=== PATIENT | female | born 1975 | race American Indian/Alaskan Native ===

== ENCOUNTER 2017-07-05 06:45 | Inpatient (IN) | payer MEDICAID, OTHER ==
[2017-07-05] MEDS ORDERED: ASPIRIN PO ONE (06:54)
[2017-07-05 07:19] LABS: Basophils % (Auto) 0.6 % (0.0-1.8); Eosinophils # (Auto) 0.1 K/mm3 (0.0-0.4); Eosinophils % (Auto) 1.5 % (0.0-4.3); Hematocrit 38.8 % (30.3-42.9); Hemoglobin 12.9 gm/dl (10.1-14.3); Lymphocytes # (Auto) 2.1 K/mm3 (1.2-5.4); Lymphocytes % (Auto) 28.1 % (13.4-35.0); Mean Corpuscular HGB Conc 33 % (30-34); Mean Corpuscular Hemoglobin 30 pg (28-32); Mean Corpuscular Volume 91 fl (79-97); Monocytes # (Auto) 0.5 K/mm3 (0.0-0.8); Monocytes % (Auto) 6.5 % (0.0-7.3); Platelet Count 256 K/mm3 (140-440); Red Blood Count 4.28 M/mm3 (3.65-5.03)
[2017-07-05 07:35] LABS: BUN/Creatinine Ratio 20; Blood Urea Nitrogen 14 mg/dL (7-17); Calcium 9.5 mg/dL (8.4-10.2); Hemolysis Index 22
--- NOTE | 2017-07-05 07:54 | Emergency Department Report ---
ED General Adult HPI - General Chief complaint: Chest Pain Stated complaint: CHEST PAIN Time Seen by Provider: 07/05/17 07:27 Source: patient Mode of arrival: Ambulatory Limitations: No Limitations - History of Present Illness Initial comments: Palpitations and right sided neck pain with intermittent atypical chest pain was here 2 months ago she had a CT angiogram of the neck there was nothing acute at that time she was felt to have atypical chest pain. She was up history of anxiety she also is a smoker here for evaluation of palpitations, pt feels like she may black out , no fever, intermittent cp w/ palpitaiotns -: Gradual, days(s) Consistency: intermittent Associated Symptoms: chest pain. denies: diaphoresis, fever/chills, headaches, loss of appetite, malaise, nausea/vomiting, rash, seizure - Related Data Previous Rx's Medication Instructions Recorded Last Taken Type ALBUTEROL Inhaler [ProAir HFA 2 puff IH QID PRN #1 inhalation 01/12/15 09/28/15 Rx Inhaler] Atenolol/Chlorthalidone [Tenoretic 1 tab PO QDAY #30 tablet 09/30/15 Unknown Rx 50-25] Allergies Allergy/AdvReac Type Severity Reaction Status Date / Time No Known Allergies Allergy Verified 03/25/15 17:11 ED Review of Systems ROS: Stated complaint: CHEST PAIN Other details as noted in HPI Comment: All other systems reviewed and negative Constitutional: denies: diaphoresis, fever, malaise ENT: denies: dental pain, hearing loss, epistaxis Respiratory: denies: orthopnea, shortness of breath, SOB with exertion, SOB at rest, stridor Cardiovascular: chest pain, palpitations. denies: edema, syncope Gastrointestinal: denies: abdominal pain, nausea, vomiting, diarrhea, constipation, hematemesis, melena, hematochezia Neurological: denies: headache, numbness, paresthesias, confusion, abnormal gait , vertigo (does drink occasionally also with glasses caffeine felt like she is blackout with palpitations.) Other: Also worried about some right-sided neck pain with possible mass ED Past Medical Hx - Past Medical History Previous Medical History?: Yes Hx Hypertension: Yes ("borderline") Hx Psychiatric Treatment: Yes (depression and anxiety) Hx Asthma: Yes Additional medical history: high cholesterol. ANXIETY/ DEPRESSION - Surgical History Past Surgical History?: No - Social History Smoking Status: Never Smoker Substance Use Type: None - Medications Home Medications: Home Medications Medication Instructions Recorded Confirmed Last Taken Type ALBUTEROL Inhaler [ProAir HFA 2 puff IH QID PRN #1 inhalation 01/12/15 09/30/15 09/28/15 Rx Inhaler] Atenolol/Chlorthalidone [Tenoretic 1 tab PO QDAY #30 tablet 09/30/15 Unknown Rx 50-25] ED Physical Exam - General Limitations: No Limitations General appearance: alert - Head Head exam: Present: atraumatic, normocephalic - Eye Eye exam: Present: PERRL, EOMI - ENT ENT exam: Present: normal exam, normal orophraynx - Neck Neck exam: Present: normal inspection. Absent: tenderness, meningismus - Respiratory Respiratory exam: Present: normal lung sounds bilaterally. Absent: respiratory distress, wheezes, rales, rhonchi, stridor, accessory muscle use, prolonged expiratory - Cardiovascular Cardiovascular Exam: Present: regular rate, normal rhythm, irregular rhythm, normal heart sounds, other (PVCs) - GI/Abdominal GI/Abdominal exam: Present: soft. Absent: tenderness, guarding, rebound, mass, pulsatile mass - Extremities Exam Extremities exam: Present: normal inspection, normal capillary refill. Absent: tenderness, pedal edema, joint swelling, calf tenderness - Back Exam Back exam: Present: normal inspection. Absent: tenderness, CVA tenderness (R), CVA tenderness (L), muscle spasm, paraspinal tenderness, vertebral tenderness - Neurological Exam Neurological exam: Present: alert, oriented X3, CN II-XII intact. Absent: motor sensory deficit - Psychiatric Psychiatric exam: Present: normal affect, anxious - Skin Skin exam: Present: warm. Absent: cyanosis, diaphoretic, erythema, urticaria, vesicles, petechiae ED Course Vital Signs 07/05/17 06:51 Temperature 98.2 F ED Medical Decision Making - Lab Data Result diagrams: 07/05/17 07:02 07/05/17 07:02 - EKG Data -: EKG Interpreted by Me EKG shows normal: sinus rhythm - EKG Data Interpretation: other (no acute ischemic change frequent PVCs) - Radiology Data Radiology results: report reviewed - Medical Decision Making Consult was made to cardiology as well as hospitalist service for further evaluation patient does seem to have frequent PVCs never has had this checked out she is having palpitations with possible near syncope Dr. Hahn will evaluate patient for possible admission consult was made to in [facility] cardiology . Heart Critical care attestation.: If time is entered above; I have spent that time in minutes in the direct care of this critically ill patient, excluding procedure time. ED Disposition Clinical Impression: Palpitations, Near syncope, PVCs (premature ventricular contractions) Disposition: 09 OP ADMIT IP TO THIS HOSP Is pt being admited?: Yes Condition: Stable Referrals: PRIMARY CARE, [Primary Care Provider] - 3-5 Days Time of Disposition: 12:55
--- NOTE | 2017-07-05 10:12 | Cat Scan Report ---
FINAL REPORT EXAM: CT NECK W CON HISTORY: mass TECHNIQUE: CT of the neck performed. IV contrast administered. Axial images and coronal and sagittal reformatted images were obtained. A marker was placed on the right side of the neck. PRIORS: None. FINDINGS: There is no abnormal lymphadenopathy. No focal neck mass identified. No abnormal fluid collection or inflammatory process seen in the neck. Salivary glands are symmetric and unremarkable. Thyroid gland is unremarkable. Airway is patent. Parapharyngeal tissue planes are maintained. Visualized sinuses are clear. The marker placed on the neck is superficial to the right sternocleidomastoid muscle. No mass is seen in this area. IMPRESSION: There is no abnormal mass or fluid collections seen. The area of clinical concern which is delineated with a skin marker, probably corresponds to the right sternocleidomastoid muscle which has a normal size and appearance.
[2017-07-05] MEDS ORDERED: K-DUR PO ONE ×2 (10:57→22:00)
[2017-07-05] MEDS ORDERED: BABY ASPIRIN PO STA (12:42)
[2017-07-05] MEDS ORDERED: MORPHINE IV PRN (12:42)
[2017-07-05] MEDS ORDERED: TYLENOL PO PRN (12:42)
[2017-07-05] MEDS ORDERED: SODIUM CHLORIDE FLUSH SYRINGE 10 ML IV PRN ×2 (12:42)
[2017-07-05] MEDS ORDERED: ZOFRAN IV PRN (12:42)
[2017-07-05] MEDS ORDERED: NITROSTAT SL PRN (12:42)
--- NOTE | 2017-07-05 12:45 | History and Physical Report ---
History of Present Illness Chief complaint: My heart is beating fast History of present illness: 42 YO Female with Obesity, HTN, HLD, Depression, Anxiety, GERD, Nicotine Dependence, Asthma presents to ED for evaluation. Pt states that she has experienced chest palpitations and pain in her chest for the past week with worsening symptoms over the past 1 day. Pt states that her chest pain is 4/10, intermittent, midsternal, dull, radiates to her right neck/and right anterior chest, no worsened with exertion, or relieved with rest. Pt denies fever, chills , shortness of breath, hemoptysis, unintentional weight loss, unilateral leg swelling, calf pain, individual/family history of DVT/PE, prolonged travel/ immobility, skin rash, or trauma. Pt seen and evaluated in ED and found to have PVC's, as well as symptoms consistent with ACS as well as Diastolic CHF. Cardiology consulted in ED. Pt admitted to telemetry. Past History Past Medical History: GERD, hypertension, hyperlipidemia Past Surgical History: No surgical history, Other (reviewed) Social history: , smoking. denies: alcohol abuse, prescription drug abuse Family history: hypertension Medications and Allergies Allergies Allergy/AdvReac Type Severity Reaction Status Date / Time No Known Allergies Allergy Verified 03/25/15 17:11 Home Medications Medication Instructions Recorded Confirmed Last Taken Type ALBUTEROL Inhaler [ProAir HFA 2 puff IH QID PRN #1 inhalation 01/12/15 07/05/17 09/28/15 Rx Inhaler] Atenolol/Chlorthalidone [Tenoretic 1 tab PO QDAY #30 tablet 09/30/15 07/05/17 Unknown Rx 50-25] Ergocalciferol [Vitamin D2] 1 cap PO QWEEK 07/05/17 07/05/17 Unknown History Fluticasone (Nf) [Flovent Hfa(Nf)] 2 puff IH BID 07/05/17 07/05/17 Unknown History Omeprazole 40 mg PO DAILY 07/05/17 07/05/17 Unknown History Review of Systems Constitutional: no weight loss, no weight gain, no fever, no chills Ears, nose, mouth and throat: no ear pain, no ear discharge, no tinnitis, no decreased hearing, no nose pain Cardiovascular: chest pain, palpitations, no orthopnea, no edema, no syncope, no lightheadedness, no shortness of breath, no dyspnea on exertion Respiratory: no cough, no cough with sputum, no excessive sputum, no hemoptysis , no shortness of breath Gastrointestinal: no nausea, no vomiting, no diarrhea, no constipation, no change in bowel habits Genitourinary Female: no pelvic pain, no flank pain, no menorrhagia, no dysuria , no urinary frequency, no urgency Rectal: no pain, no incontinence, no bleeding Musculoskeletal: no neck stiffness, no neck pain, no shooting arm pain, no arm numbness/tingling, no low back pain, no shooting leg pain Integumentary: no rash, no pruritis, no redness, no sores, no wounds, no jaundice Neurological: no transient paralysis, no paralysis, no weakness, no parathesias , no numbness, no tingling, no seizures Psychiatric: no anxiety, no memory loss, no change in sleep habits, no sleep disturbances, no insomnia, no hypersomnia Endocrine: no cold intolerance, no heat intolerance, no polyphagia, no excessive thirst, no polydipsia, no polyuria, no nocturia Hematologic/Lymphatic: no easy bruising, no easy bleeding Allergic/Immunologic: no urticaria, no allergic rhinitis, no wheezing Exam - Constitutional Vitals: Temp Pulse Resp BP Pulse Ox 98.2 F 07/05/17 06:51 General appearance: Present: mild distress, obese - EENT Eyes: Present: PERRL ENT: hearing intact, clear oral mucosa - Neck Neck: Present: supple, normal ROM - Respiratory Respiratory effort: normal Respiratory: bilateral: CTA - Cardiovascular Heart Sounds: Present: S1 & S2. Absent: rub, click - Extremities Extremities: pulses symmetrical, No edema Peripheral Pulses: within normal limits - Abdominal General gastrointestinal: Present: soft, non-tender, non-distended, normal bowel sounds Female genitourinary: Present: normal - Integumentary Integumentary: Present: clear, warm, dry - Musculoskeletal Musculoskeletal: gait normal, strength equal bilaterally - Psychiatric Psychiatric: appropriate mood/affect, intact judgment & insight - Neurologic Neurologic: CNII-XII intact, moves all extremities Results - Labs CBC & Chem 7: 07/05/17 07:02 07/05/17 07:02 Labs: Abnormal lab results 07/05/17 Range/Units 07:02 Sodium 136 L (137-145) mmol/L Potassium 3.2 L (3.6-5.0) mmol/L Chloride 94.6 L (98-107) mmol/L Glucose 110 H (65-100) mg/dL Assessment and Plan - Patient Problems (1) ACS (acute coronary syndrome) Current Visit: Yes Status: Acute Plan to address problem: Cardiology consulted in ED, Serial cardiac enzymes, D dimer, EKG, Echo, Stress test, supplemental oxygen, morphine, nitro tabs, aspirin, (2) PVCs (premature ventricular contractions) Current Visit: Yes Status: Acute Plan to address problem: CArdiology consulted, bmp, telemetry, (3) Diastolic CHF Current Visit: Yes Status: Suspected Qualifiers: Heart failure chronicity: acute Qualified Code(s): I50.31 - Acute diastolic (congestive) heart failure Plan to address problem: Strict I/O, Afterload reduction, Echo, cardiology consulted, monitor uop q shift , serial cardiac enzymes, bnp, d dimer, daily weight, (4) GERD (gastroesophageal reflux disease) Current Visit: Yes Status: Acute Qualifiers: Esophagitis presence: without esophagitis Qualified Code(s): K21.9 - Gastro -esophageal reflux disease without esophagitis Plan to address problem: PPI therapy, supportive care. (5) DVT prophylaxis Current Visit: No Status: Acute Plan to address problem: scd to ble while in bed
[2017-07-05 13:24] LABS: Chol/HDL Ratio 4.59 %
--- NOTE | 2017-07-05 15:15 | Consultation ---
History of Present Illness Consult date: 07/05/17 Requesting physician: RENATO CORBIN Consult reason: other (PVCs) History of present illness: The patient is a 42YO female with a past medical history significant for HTN, HLP, asthma, GERD, anxiety and panic attacks, tobacco use. She is previously unknown to our practice. She presented with c/o palpitations, chest pain and intermittent dizziness for the past 1 week. She was noted to have frequent PVCs in ED and thus cardiology has been consulted. Pt describes her chest pain as an intermittent, nonexertional, midsternal dull pain which sometimes radiates into her right neck and right breast. There are no clear aggravating or alleviating factors. Also, pt reports that when she goes from a sitting to standing position , she feels dizzy. She denies any SOB, n/v, diaphoresis or syncope. She denies any prior cardiac issues or cardiac evaluation. Pt taking atenolol at home for HTN. Past History Past Medical History: hypertension, hyperlipidemia, other (asthma, obesity) Social history: smoking, alcohol abuse (2-3 days per week, drinks 2-3 glasses of wine per sitting). denies: prescription drug abuse Medications and Allergies Allergies Allergy/AdvReac Type Severity Reaction Status Date / Time No Known Allergies Allergy Verified 03/25/15 17:11 Home Medications Medication Instructions Recorded Confirmed Last Taken Type ALBUTEROL Inhaler [ProAir HFA 2 puff IH QID PRN #1 inhalation 01/12/15 07/05/17 09/28/15 Rx Inhaler] Atenolol/Chlorthalidone [Tenoretic 1 tab PO QDAY #30 tablet 09/30/15 07/05/17 Unknown Rx 50-25] Ergocalciferol [Vitamin D2] 1 cap PO QWEEK 07/05/17 07/05/17 Unknown History Fluticasone (Nf) [Flovent Hfa(Nf)] 2 puff IH BID 07/05/17 07/05/17 Unknown History Omeprazole 40 mg PO DAILY 07/05/17 07/05/17 Unknown History Active Meds: Active Medications Acetaminophen (Tylenol) 650 mg PO Q4H PRN PRN Reason: Pain MILD(1-3)/Fever >100.5/POPE Famotidine (Pepcid) 10 mg PO BID CHARLES Morphine Sulfate (Morphine) 2 mg IV Q4H PRN PRN Reason: Pain, Moderate (4-6) Nitroglycerin (Nitrostat) 0.4 mg SL Q5M PRN PRN Reason: Chest Pain Ondansetron HCl (Zofran) 4 mg IV Q8H PRN PRN Reason: Nausea And Vomiting Sodium Chloride (Sodium Chloride Flush Syringe 10 Ml) 10 ml IV BID CHARLES Sodium Chloride (Sodium Chloride Flush Syringe 10 Ml) 10 ml IV PRN PRN PRN Reason: LINE FLUSH Sodium Chloride (Sodium Chloride Flush Syringe 10 Ml) 10 ml IV PRN PRN PRN Reason: LINE FLUSH Review of Systems Constitutional: no weight loss, no weight gain, no fever, no chills, no sweats Ears, nose, mouth and throat: no ear pain, no nose pain, no sinus pressure, no sinus pain Cardiovascular: chest pain, palpitations, lightheadedness, no orthopnea, no rapid/irregular heart beat, no edema, no syncope, no shortness of breath, no dyspnea on exertion, no paroxysmal nocturnal dyspnea, no leg edema Respiratory: no cough, no shortness of breath, no dyspnea on exertion, no congestion, no wheezing, no pain on inspiration Gastrointestinal: no abdominal pain, no nausea, no vomiting, no diarrhea, no constipation, no change in bowel habits Genitourinary Female: no dyspareunia, no pelvic pain, no flank pain, no dysuria , no urinary frequency, no urgency Musculoskeletal: no neck stiffness, no neck pain, no shooting arm pain, no arm numbness/tingling, no low back pain, no shooting leg pain, no leg numbness/ tingling, no redness of joints Integumentary: no rash, no pruritis, no redness, no sores, no wounds Neurological: no head injury, no paralysis, no weakness, no parathesias, no numbness, no tingling, no seizures, no syncope Psychiatric: anxiety Endocrine: no cold intolerance, no heat intolerance Hematologic/Lymphatic: no easy bruising, no easy bleeding, no lymphadenopathy Allergic/Immunologic: no urticaria, no wheezing, no persistent infections Physical Examination Vital Signs Temp Pulse Resp BP Pulse Ox 98.2 F 83 16 138/90 97 07/05/17 06:45 07/05/17 06:45 07/05/17 06:45 07/05/17 06:45 07/05/17 06:45 General appearance: no acute distress HEENT: Positive: PERRL, Normocephaly, Mucus Membranes Moist Neck: Positive: neck supple, trachea midline Cardiac: Positive: Reg Rate and Rhythm, S1/S2 Lungs: Positive: clear to auscultation Neuro: Positive: Grossly Intact, Cranial Nerve 2-12 Intact Abdomen: Positive: Soft. Negative: Tender Skin: Positive: Clear. Negative: Rash, Wound Musculoskeletal: No Fluid Collection, No Pain, Normal Range of Motion Extremities: Absent: edema Results 07/05/17 07:02 07/05/17 07:02 Lipids 07/05/17 Range/Units 09:27 Triglycerides 197 H (2-149) mg/dL Cholesterol 248 H (50-199) mg/dL HDL Cholesterol 54 (40-59) mg/dL Cholesterol/HDL Ratio 4.59 % CBC 07/05/17 Range/Units 07:02 WBC 7.5 (4.5-11.0) K/mm3 RBC 4.28 (3.65-5.03) M/mm3 Hgb 12.9 (10.1-14.3) gm/dl Hct 38.8 (30.3-42.9) % Plt Count 256 (140-440) K/mm3 Lymph # 2.1 (1.2-5.4) K/mm3 [place] # 0.5 (0.0-0.8) K/mm3 Eos # 0.1 (0.0-0.4) K/mm3 Baso # 0.0 (0.0-0.1) K/mm3 Comprehensive Metabolic Panel 07/05/17 Range/Units 07:02 Sodium 136 L (137-145) mmol/L Potassium 3.2 L (3.6-5.0) mmol/L Chloride 94.6 L (98-107) mmol/L Carbon Dioxide 25 (22-30) mmol/L BUN 14 (7-17) mg/dL Creatinine 0.7 (0.7-1.2) mg/dL Glucose 110 H (65-100) mg/dL Calcium 9.5 (8.4-10.2) mg/dL - Imaging and Cardiology Echo: pending EKG: report reviewed, image reviewed EKG interpretations - Telemetry EKG Rhythm: Sinus Rhythm - EKG Sinus rhythms and dysrhythmias: sinus rhythm Ventricular dysrhythmias: ventricular premature com Assessment and Plan Assessment: Frequent PVCs Chest pain, atypical - ECG with no acute ischemic changes, Yahaira negative for AMI x 3 sets, DDimer WNL Dizziness with positional changes Hypokalemia HTN HLP Asthma Obesity Tobacco use - cessation encouraged Plan: Replete K+. Repeat BMP in AM. Obtain thyroid profile. Obtain orthostatics. Obtain echo. Initiate lipitor. Plan for treadmill MPI stress test in AM. Pt reports she ambulates without difficulty and believes she could reach peak HR. NPO after MN. Assessment and plan reviewed with pt at bedside. The patient has been seen in conjunction with Dr. Hanks who agrees with the assessment and plan of care.
[2017-07-05] MEDS ORDERED: SODIUM CHLORIDE FLUSH SYRINGE 10 ML IV SCH (22:00)
[2017-07-05] MEDS ORDERED: PEPCID PO SCH (22:00)
[2017-07-05] MEDS: HABITROL TD SCH (23:23)
[2017-07-05] MEDS ORDERED: XANAX PO ONE (23:45)
[2017-07-06 08:06] LABS: BUN/Creatinine Ratio 20; Blood Urea Nitrogen 12 mg/dL (7-17); Calcium 9.1 mg/dL (8.4-10.2); Hemolysis Index 10
[2017-07-06] MEDS ORDERED: LEXISCAN IV ONE ×2 (09:53→09:54)
--- NOTE | 2017-07-06 10:10 | Progress Note ---
Hospitalist Physical - Constitutional Vitals: Temp Pulse Resp BP Pulse Ox 98.2 F 86 20 127/95 95 07/06/17 07:26 07/06/17 08:00 07/06/17 07:26 07/06/17 07:26 07/06/17 07:26 General appearance: Present: mild distress, obese Results - Labs CBC & Chem 7: 07/05/17 07:02 07/06/17 06:19 Labs: Laboratory Last Values WBC 7.5 K/mm3 (4.5-11.0) 07/05/17 07:02 RBC 4.28 M/mm3 (3.65-5.03) 07/05/17 07:02 Hgb 12.9 gm/dl (10.1-14.3) 07/05/17 07:02 Hct 38.8 % (30.3-42.9) 07/05/17 07:02 MCV 91 fl (79-97) 07/05/17 07:02 MCH 30 pg (28-32) 07/05/17 07:02 MCHC 33 % (30-34) 07/05/17 07:02 RDW 15.0 % (13.2-15.2) 07/05/17 07:02 Plt Count 256 K/mm3 (140-440) 07/05/17 07:02 Lymph % (Auto) 28.1 % (13.4-35.0) 07/05/17 07:02 [place] % (Auto) 6.5 % (0.0-7.3) 07/05/17 07:02 Eos % (Auto) 1.5 % (0.0-4.3) 07/05/17 07:02 Baso % (Auto) 0.6 % (0.0-1.8) 07/05/17 07:02 Lymph # 2.1 K/mm3 (1.2-5.4) 07/05/17 07:02 [place] # 0.5 K/mm3 (0.0-0.8) 07/05/17 07:02 Eos # 0.1 K/mm3 (0.0-0.4) 07/05/17 07:02 Baso # 0.0 K/mm3 (0.0-0.1) 07/05/17 07:02 Seg Neutrophils % 63.3 % (40.0-70.0) 07/05/17 07:02 Seg Neutrophils # 4.7 K/mm3 (1.8-7.7) 07/05/17 07:02 D-Dimer 135.00 ng/mlDDU (0-234) 07/05/17 12:47 Sodium 139 mmol/L (137-145) 07/06/17 06:19 Potassium 3.8 mmol/L (3.6-5.0) 07/06/17 06:19 Chloride 96.4 mmol/L (98-107) L 07/06/17 06:19 Carbon Dioxide 29 mmol/L (22-30) 07/06/17 06:19 Anion Gap 17 mmol/L 07/06/17 06:19 BUN 12 mg/dL (7-17) 07/06/17 06:19 Creatinine 0.6 mg/dL (0.7-1.2) L 07/06/17 06:19 Estimated GFR > 60 ml/min 07/06/17 06:19 BUN/Creatinine Ratio 20 % 07/06/17 06:19 Glucose 101 mg/dL (65-100) H 07/06/17 06:19 Calcium 9.1 mg/dL (8.4-10.2) 07/06/17 06:19 Magnesium 1.70 mg/dL (1.7-2.3) 07/05/17 09:27 Troponin T < 0.010 ng/mL (0.00-0.029) 07/05/17 14:49 NT-Pro-B Natriuret Pep 49.96 pg/mL (0-450) 07/05/17 20:45 Triglycerides 197 mg/dL (2-149) H 07/05/17 09:27 Cholesterol 248 mg/dL (50-199) H 07/05/17 09:27 LDL Cholesterol Direct 179 mg/dL (50-130) H 07/05/17 09:27 HDL Cholesterol 54 mg/dL (40-59) 07/05/17 09:27 Cholesterol/HDL Ratio 4.59 % 07/05/17 09:27 HCG, Qual Negative (Negative) 07/05/17 07:02
[2017-07-06 12:37] VITALS: BP 153/85
--- NOTE | 2017-07-06 13:57 | Progress Note ---
Assessment and Plan Assessment: Frequent PVCs - suspect secondary to excessive caffeine consumption Chest pain, atypical - currently resolved; ECG with no acute ischemic changes, Yahaira negative for AMI x 3 sets, DDimer WNL Dizziness with positional changes Hypokalemia - improved HTN HLP Asthma Obesity Tobacco use - cessation encouraged Plan: S/p lexiscan MPI stress test this AM which was negative for ischemia, EF 59%. Echo reviewed - EF 50-55%, impaired relaxation. Orthostatics unremarkable. Resume home atenolol. Currently stable cardiac status. Pt may discharge home from cardiology standpoint. Recommend follow up in our office with Dr. Hanks within 2 weeks of hospital discharge ([phone]). Assessment and plan reviewed with pt at bedside. The patient has been seen in conjunction with Dr. Hanks who agrees with the assessment and plan of care. Subjective Date of service: 07/06/17 Principal diagnosis: PVCs; chest pain Interval history: pt resting comfortably in bed, states she is feeling better. Less frequent PVCs noted on telemetry. Objective Last Vital Signs Temp 98.2 F 07/06/17 07:26 Pulse 100 H 07/06/17 10:26 Resp 18 07/06/17 10:00 BP 153/85 07/06/17 10:26 Pulse Ox 99 07/06/17 10:00 - Physical Examination General: No Apparent Distress HEENT: Positive: PERRL, Normocephaly, Mucus Membranes Moist Neck: Positive: neck supple, trachea midline Cardiac: Positive: Reg Rate and Rhythm, S1/S2 Lungs: Positive: clear to auscultation Neuro: Positive: Grossly Intact, Cranial Nerve 2-12 Intact Abdomen: Positive: Soft. Negative: Tender Skin: Positive: Clear. Negative: Rash, Wound Musculoskeletal: No Fluid Collection, No Pain, Normal Range of Motion Extremities: Absent: edema - Labs and Meds Comprehensive Metabolic Panel 07/06/17 Range/Units 06:19 Sodium 139 (137-145) mmol/L Potassium 3.8 (3.6-5.0) mmol/L Chloride 96.4 L (98-107) mmol/L Carbon Dioxide 29 (22-30) mmol/L BUN 12 (7-17) mg/dL Creatinine 0.6 L (0.7-1.2) mg/dL Glucose 101 H (65-100) mg/dL Calcium 9.1 (8.4-10.2) mg/dL - Imaging and Cardiology EKG: report reviewed, image reviewed Echo: pending - EKG Sinus rhythms and dysrhythmias: sinus rhythm Ventricular dysrhythmias: ventricular premature com
[2017-07-06] MEDS ORDERED: TENORMIN PO SCH (14:00)
[2017-07-06] MEDS: HABITROL TD SCH (14:38)
--- NOTE | 2017-07-06 15:45 | Discharge Summary ---
<TERI ANDREWS - Last Filed: 07/06/17 15:38> Providers - Providers Date of Admission: 07/05/17 12:43 Date of discharge: 07/06/17 Attending physician: CHERI OWENS 07/05/17 Consult to Cardiac Rehabilitation [CONS] Routine Reason For Exam: Phase I 07/05/17 10:56 Consult to Cardiology [CONS] Stat Consulting Provider: YULY IVY Reason For Exam: palpitaiotns, frequent pvcs Primary care physician: BRUSH [employer] Hospitalization Condition: Stable Hospital course: 42 YO Female with Obesity, HTN, HLD, Depression, Anxiety, GERD, Nicotine Dependence, Asthma presents to ED for evaluation. Pt states that she has experienced chest palpitations and pain in her chest for the past week with worsening symptoms over the past 1 day prior to admission. Patient underwent cardiac workup which began with serial troponins that were negative. Patient's potassium low and was supplemented. Cardiology services was consulted and patient underwent a stress test which was negative for ischemia. Patient was counseled on decreasing her caffeine intake. Echo reviewed - EF 50-55%, impaired relaxation. Patient's chest pain has resolved and no further cardiac workup is indicated at this time. Patient is clinically stable for discharge home and will resume home medications. Patient is advised to follow-up with a primary care provider within 1 week of discharge and follow up with Dr. Hanks within 2 weeks of hospital discharge . Discharge diagnoses Atypical chest pain Resolved, likely due to GERD Frequent PVCs Likely secondary to excessive caffeine intake, recommend reduction of caffeine intake Hyperlipidemia Initiated on statin therapy Hypertension will resume outpatient antihypertensive GERD PPI as needed Obesity Patient counseled on weight loss and reduce calorie intake Tobacco use Patient counseled on cessation Disposition: DC-01 TO HOME OR SELFCARE Time spent for discharge: 32 minutes Core Measure Documentation - Palliative Care Palliative Care/ Comfort Measures: Not Applicable - Core Measures Any of the following diagnoses?: none Exam - Constitutional Vitals: Temp Pulse Resp BP Pulse Ox 98.2 F 100 H 18 153/85 99 07/06/17 07:26 07/06/17 10:26 07/06/17 10:00 07/06/17 10:26 07/06/17 10:00 General appearance: Present: no acute distress, well-nourished, obese - EENT Eyes: Present: PERRL ENT: hearing intact, clear oral mucosa - Neck Neck: Present: supple, normal ROM - Respiratory Respiratory effort: normal Respiratory: bilateral: CTA - Cardiovascular Heart Sounds: Present: S1 & S2. Absent: rub, click - Extremities Extremities: pulses symmetrical, No edema Peripheral Pulses: within normal limits - Abdominal General gastrointestinal: Present: soft, non-tender, non-distended, normal bowel sounds - Integumentary Integumentary: Present: clear, warm, dry - Musculoskeletal Musculoskeletal: gait normal, strength equal bilaterally - Psychiatric Psychiatric: appropriate mood/affect, intact judgment & insight - Neurologic Neurologic: CNII-XII intact, moves all extremities Plan Diet: low fat, low cholesterol, low salt Follow up with: PRIMARY CAREMD [Primary Care Provider] - 3-5 Days YULY IVY MD [Staff Physician] - 14 Days Prescriptions: Nicotine [Habitrol] 14 mg TD QDAY #30 patch <CHERI OWENS - Last Filed: 07/07/17 11:00> Providers - Providers Date of Admission: 07/05/17 12:43 Attending physician: CHERI OWENS 07/05/17 Consult to Cardiac Rehabilitation [CONS] Routine Reason For Exam: Phase I 07/05/17 10:56 Consult to Cardiology [CONS] Stat Consulting Provider: YULY IVY Reason For Exam: palpitaiotns, frequent pvcs Primary care physician: BRUSH [employer]PARER Hospitalization Hospital course: I saw and evaluated the patient on the day of service. I agree with the findings and the plan of care as documented in the Nurse Practitioner's~note, with the following corrections and additions. hypokalemia, repleted Exam - Constitutional Vitals: Temp Pulse Resp BP Pulse Ox 98.2 F 74 18 153/85 99 07/06/17 07:26 07/06/17 15:40 07/06/17 10:00 07/06/17 10:26 07/06/17 10:00
--- NOTE | 2017-07-06 21:58 | Treadmill Report ---
LEXISCAN NUCLEAR SCAN REPORT REFERRING PHYSICIAN: Myran Doan MD DESCRIPTION OF PROCEDURE: The patient received 10 mCi of technetium 99m Myoview intravenously under resting conditions. Resting myocardial perfusion scan was done. Subsequently, the patient underwent Lexiscan stress test as per the protocol. During Lexiscan stress, patient received 29 mCi of technetium 99m Myoview intravenously. After 30-60 minutes, post stress images were done. Computerized reconstruction images were performed for analysis. The post-stress images revealed uniform distribution of radiopharmaceutical in the left ventricular myocardium. Cinematic display of the gated study did not reveal any wall motion abnormality. The left ventricular ejection fraction was normal and was calculated to be 59%. The resting images were also normal. CONCLUSIONS: 1. No perfusion abnormality of the left ventricular myocardium was demonstrated in the resting as well as stress images obtained after the patient underwent Lexiscan nuclear stress scan. 2. No wall motion abnormality. 3. Normal left ventricular ejection fraction of 59%. JOB# [id number] [facility]
== END 2017-07-06 16:21 | disposition home or self-care (01) | DRG 309 ==
LOC: ED 06:45 → 4A 12:43
PROVIDERS: ADMIT Internal Medicine; ATTEND Internal Medicine
DX: I49.3 Ventricular premature depolarization (principal); I50.30 Unspecified diastolic (congestive) heart failure; Z68.41 Body mass index [BMI] 40.0-44.9, adult; K21.9 Gastro-esophageal reflux disease without esophagitis; J45.909 Unspecified asthma, uncomplicated; E78.00 Pure hypercholesterolemia, unspecified; F32.9 Major depressive disorder, single episode, unspecified; E66.9 Obesity, unspecified; I11.0 Hypertensive heart disease with heart failure; F17.200 Nicotine dependence, unspecified, uncomplicated; F41.0 Panic disorder [episodic paroxysmal anxiety]; E87.6 Hypokalemia; Z82.49 Family history of ischemic heart disease and other diseases of the circulatory system; Z71.6 Tobacco abuse counseling
CPT/HCPCS: 36415; 70491; 78452; 80048; 80061; 83735; 83880; 84484; 84703; 85025; 85379; 93005; 93010; 93017; 93306; 99406; A9270-GY; A9502; J2270; J2405; J2785; Q9967